=== PATIENT | female | born 1955 | race Caucasian/White ===

== ENCOUNTER → 2017-10-21 | Outpatient (CLI) | payer BC ==
--- NOTE | ~2017-10-21 | EKG ---
[address] [address] ELECTROCARDIOGRAM REPORT Name: EDDIE PAVON [id number] Admission: 10/21/17 Attend Phys: Sarah Candelario MD Discharge: Date of : 53 Report #: [id number] THIS REPORT FOR: //name// [facility] Test Date: 2017-10-21 Test Time: 15:42:03 Pat Name: EDDIE PAVON Department: Room: Gender: F Pbx Supervisor: Joseph HERNANDEZ : 1955 Requested By: Sarah Candelario Order Number: [id number] MD: Foreign Gutiérrez Measurements Intervals [place] Rate: 80 P: 42 WI: 163 QRS: -20 QRSD: 96 T: 7 QT: 367 QTc: 424 Interpretive Statements Sinus rhythm Baseline wander in lead(s) III No previous ECG available for comparison Electronically Signed On 10-22-2017 8:24:57 KAITARA TARAKA by Foreign Gutiérrez [email or web address] <ELECTRONICALLY SIGNED> By: Foreign Gutiérrez MD 10/22/17 0824 1542 1542 Foreign Gutiérrez MD /BRUCE
[2017-10-21 15:36] LABS: CALCIUM 9.5 mg/dL (8.5-10.1); CREATININE 0.9 mg/dL (0.6-1.0); POTASSIUM 3.7 mmol/L (3.5-5.1)
== END ==
LOC: CV 14:57
PROVIDERS: Anesthesiology
DX: I10 Essential (primary) hypertension (principal)